=== PATIENT | male | born 1970 | race American Indian/Alaskan Native ===

== ENCOUNTER 2017-10-07 11:41 | Inpatient (IN) | payer OTHER ==
[2017-10-07] MEDS ORDERED: ASPIRIN PO ONE (12:20)
[2017-10-07 12:42] LABS: Basophils # (Auto) 0.1 K/mm3 (0.0-0.1); Basophils % (Auto) 0.8 % (0.0-1.8); Eosinophils # (Auto) 0.2 K/mm3 (0.0-0.4); Eosinophils % (Auto) 2.5 % (0.0-4.3); Hematocrit 34.2 % (35.5-45.6); Hemoglobin 11.8 gm/dl (11.8-15.2); Lymphocytes % (Auto) 11.3 % (13.4-35.0); Mean Corpuscular HGB Conc 35 % (32-34); Mean Corpuscular Hemoglobin 29 pg (28-32); Mean Corpuscular Volume 84 fl (84-94); Monocytes # (Auto) 0.8 K/mm3 (0.0-0.8); Monocytes % (Auto) 8.9 % (0.0-7.3); Platelet Count 121 K/mm3 (140-440); Red Blood Count 4.08 M/mm3 (3.65-5.03); Red Cell Distribution Width 14.4 % (13.2-15.2)
[2017-10-07 13:01] LABS: Calcium 8.3 mg/dL (8.4-10.2)
--- NOTE | 2017-10-07 13:01 | XRay Report ---
ROUTINE CHEST, TWO VIEWS: HISTORY: Cough. The trachea, heart, mediastinal contour, lung hou and bony thorax are unremarkable. IMPRESSION: Unremarkable chest x-ray.
[2017-10-07 16:29] LABS: Chol/HDL Ratio 3.4 %
--- NOTE | 2017-10-07 16:46 | Emergency Department Report ---
- General Chief Complaint: Upper Respiratory Infection Stated Complaint: SOB/COUGHING/GAGGING Time Seen by Provider: 10/07/17 16:30 Source: patient Mode of arrival: Ambulatory Limitations: No Limitations - History of Present Illness Initial Comments: 47 yo male with a past medical history hypertension presents to the hospital complaining of nonproductive cough 2 months and dyspnea on exertion for the last 3-4 days. He presents with significantly elevated blood pressure and states he's been noncompliant with blood pressure medication for at least 6 months. He denies fever, wheezing, headache, blurred vision, chest pain, edema , or decreased urine output. He does not smoke cigarettes. Patient does not have a PMD. - Related Data Home Medications Medication Instructions Recorded Confirmed Last Taken No Known Home Medications [No 10/07/17 10/07/17 Unknown Reported Home Medications] Allergies Allergy/AdvReac Type Severity Reaction Status Date / Time No Known Allergies Allergy Unverified 10/07/17 12:20 ED Review of Systems ROS: Stated complaint: SOB/COUGHING/GAGGING Other details as noted in HPI Comment: All other systems reviewed and negative ED Past Medical Hx - Past Medical History Hx Hypertension: Yes - Surgical History Past Surgical History?: No - Social History Smoking Status: Unknown if ever smoked Substance Use Type: Alcohol - Medications Home Medications: Home Medications Medication Instructions Recorded Confirmed Last Taken Type No Known Home Medications [No 10/07/17 10/07/17 Unknown History Reported Home Medications] ED Physical Exam - General Limitations: No Limitations - Other Other exam information: General: No limitations, patient is alert in no acute distress Head exam: Atraumatic, normocephalic Eyes exam: Normal appearance ENT: Moist mucous membrane, normal oropharynx Neck exam: Normal inspection, full range of motion, no meningismus nontender Respiratory exam: Clear to auscultation bilateral, no wheezes, rales, crackles Cardiovascular: Normal rate and rhythm, S4 heart sound Abdomen: Soft, nondistended, and nontender, with normal bowel sounds, no rebound, or guarding Extremity: Full range of motion normal inspection no deformity, no edema Back: Normal Inspection, full range of motion, no tenderness Neurologic: Alert, oriented x3, cranial nerves intact, no motor or sensory deficit Psychiatric: normal affect, normal mood Skin: Warm, dry, intact ED Course Vital Signs 10/07/17 10/07/17 10/07/17 12:15 16:20 16:30 Temperature 98.7 F Pulse Rate 106 H 98 H 93 H Respiratory 18 15 14 Rate Blood Pressure 234/171 242/172 Blood Pressure [Left] O2 Sat by Pulse 97 96 Oximetry 10/07/17 10/07/17 10/07/17 16:37 16:39 16:45 Temperature 99.1 F Pulse Rate 92 H 88 Respiratory 15 15 17 Rate Blood Pressure 242/172 Blood Pressure 242/172 [Left] O2 Sat by Pulse 97 97 95 Oximetry 10/07/17 10/07/17 10/07/17 17:00 17:15 17:30 Temperature Pulse Rate 92 H 98 H 102 H Respiratory 11 L 14 14 Rate Blood Pressure 228/161 241/162 236/163 Blood Pressure [Left] O2 Sat by Pulse 96 95 Oximetry 10/07/17 10/07/17 10/07/17 17:45 18:00 18:15 Temperature Pulse Rate 106 H 93 H 103 H Respiratory 15 13 13 Rate Blood Pressure 203/130 185/110 194/124 Blood Pressure [Left] O2 Sat by Pulse 94 93 95 Oximetry 10/07/17 10/07/17 10/07/17 18:30 18:45 19:00 Temperature Pulse Rate 110 H 93 H 97 H Respiratory 19 14 Rate Blood Pressure 194/124 173/98 179/109 Blood Pressure [Left] O2 Sat by Pulse 91 92 Oximetry 10/07/17 10/07/17 19:15 19:30 Temperature Pulse Rate 93 H 93 H Respiratory 17 25 H Rate Blood Pressure 175/102 170/101 Blood Pressure [Left] O2 Sat by Pulse 92 92 Oximetry - Consultations Consultation #1: 10/07/17 17:14 case d/w Dr luann Torres (cards). In Ed to eval pt 10/07/17 17:[address] Longoria nephrology. Will consult. Added UA, urine protein creatinine ratio as requested 10/07/17 19:[address] Ramon. repeat ekg reviewed due to mild changes compared to previous. still No stemi ED Medical Decision Making - Lab Data Result diagrams: 10/07/17 12:23 10/07/17 12:23 Lab Results 10/07/17 10/07/17 10/07/17 Range/Units 12:23 12:23 15:08 WBC 8.6 (4.5-11.0) K/mm3 RBC 4.08 (3.65-5.03) M/mm3 Hgb 11.8 (11.8-15.2) gm/dl Hct 34.2 L (35.5-45.6) % MCV 84 (84-94) fl MCH 29 (28-32) pg MCHC 35 H (32-34) % RDW 14.4 (13.2-15.2) % Plt Count 121 L (140-440) K/mm3 Lymph % (Auto) 11.3 L (13.4-35.0) % [place] % (Auto) 8.9 H (0.0-7.3) % Eos % (Auto) 2.5 (0.0-4.3) % Baso % (Auto) 0.8 (0.0-1.8) % Lymph # 1.0 L (1.2-5.4) K/mm3 [place] # 0.8 (0.0-0.8) K/mm3 Eos # 0.2 (0.0-0.4) K/mm3 Baso # 0.1 (0.0-0.1) K/mm3 Seg Neutrophils % 76.5 H (40.0-70.0) % Seg Neutrophils # 6.6 (1.8-7.7) K/mm3 Sodium 136 L (137-145) mmol/L Potassium 3.0 L (3.6-5.0) mmol/L Chloride 94.6 L (98-107) mmol/L Carbon Dioxide 23 (22-30) mmol/L Anion Gap 21 mmol/L BUN 54 H (9-20) mg/dL Creatinine 6.5 H (0.8-1.5) mg/dL Estimated GFR 9 ml/min BUN/Creatinine Ratio 8 % Glucose 122 H (75-100) mg/dL Calcium 8.3 L (8.4-10.2) mg/dL Troponin T 0.096 H 0.105 H* (0.00-0.029) ng/mL Triglycerides 151 H (2-149) mg/dL Cholesterol 238 H (50-199) mg/dL LDL Cholesterol Direct 146 H (50-130) mg/dL HDL Cholesterol 70 H (40-59) mg/dL Cholesterol/HDL Ratio 3.40 % - EKG Data -: EKG Interpreted by Me EKG shows normal: sinus rhythm, axis (qrs 67), QRS complexes (qrsd 100), ST-T waves (no stemi, lvh) Rate: normal (95) - EKG Data When compared to previous EKG there are: previous EKG unavailable - Radiology Data Radiology results: report reviewed read by radiologist Chest x-ray: No acute finding - Medical Decision Making Chest x-ray unremarkable without signs of infection. Patient presenting with uncontrolled hypertension with signs of newly diagnosed renal failure and mildly elevated troponin. Cardene drip initiated. Aspirin provided. Chest x- ray unremarkable. Nephrology and cardiology consultation. Patient will be admitted to the ICU due to drips. Critical care consult ordered - Differential Diagnosis pneumonia, bronchitis, CHF, hypertensive emergency Critical Care Time: No Critical care attestation.: If time is entered above; I have spent that time in minutes in the direct care of this critically ill patient, excluding procedure time. ED Disposition Clinical Impression: Cough, GARCIA (dyspnea on exertion), Hypertensive emergency, Acute renal failure, Elevated troponin, Thrombocytopenia, Hypokalemia Disposition: DC-09 OP ADMIT IP TO THIS HOSP Is pt being admited?: Yes Condition: Stable Time of Disposition: 17:01 (Margaret/hosp)
[2017-10-07] MEDS ORDERED: ASPIRIN ONE (17:17)
[2017-10-07] MEDS: CARDENE 50 MG in NACL 0.9% 250ML 230 ML IV SCH ×2 (17:30→23:46)
[2017-10-07 17:54] LABS: INR 0.95 (0.87-1.13)
[2017-10-07 17:56] LABS: Partial Thromboplastin Time 36.5 Sec. (24.2-36.6)
[2017-10-07 18:04] LABS: Creatine Kinase MB 3.4 ng/mL (0.0-4.0)
[2017-10-07 20:52] LABS: Bacteria,Urine 1+ /HPF (Negative); Bilirubin,Urine NEG (Negative); Blood,Urine NEG (Negative); Color,Urine Straw (Yellow); Mucus,Urine FEW /HPF; Urobilinogen,Urine < 2.0 mg/dL (<2.0); WBC,Urine < 1.0 /HPF (0.0-6.0)
[2017-10-07 20:53] LABS: Creatinine,Urine 70.8 mg/dL (0.1-20.0)
[2017-10-07 21:35] LABS: Amphetamine Screen,Urine PRESUMPTIVE NEGATIVE; Benzodiazepines Screen,Urine PRESUMPTIVE NEGATIVE; Cannabinoid Screen,Urine PRESUMPTIVE NEGATIVE; Cocaine Screen,Urine PRESUMPTIVE NEGATIVE; Creatinine,Urine 72.8 mg/dL (0.1-20.0); Methadone Screen,Urine PRESUMPTIVE NEGATIVE
[2017-10-07 21:54] LABS: Opiate Screen,Urine PRESUMPTIVE NEGATIVE; Protein/Creatinine Ratio,Urine 2.12
--- NOTE | 2017-10-07 23:27 | History and Physical Report ---
History of Present Illness Date of examination: 10/07/17 Date of admission: 10/07/17 17:22 Chief complaint: CC Dyspnea on exertion History of present illness: History of Present Illness: 47 yo male with a past medical history hypertension presents to the hospital complaining of nonproductive cough 2 months and dyspnea on exertion for the last 3-4 days. He presents with significantly elevated blood pressure and states he's been noncompliant with blood pressure medication for at least 6 months. He denies fever, wheezing, headache, blurred vision, chest pain, edema , or decreased urine output. He does not smoke cigarettes. Patient does not have a PMD. Past Medical History Hx Hypertension: Yes Surgical History Past Surgical History?: No Social History Smoking Status: Unknown if ever smoked Substance Use Type: Alcohol Family History Htn - Medications Home Medications: Home Medications Medication Instructions Recorded Confirmed Last Taken Type No Known Home Medications [No 10/07/17 10/07/17 Unknown History Reported Home Medications] Medications and Allergies Allergies Allergy/AdvReac Type Severity Reaction Status Date / Time No Known Allergies Allergy Unverified 10/07/17 12:20 Home Medications Medication Instructions Recorded Confirmed Last Taken Type No Known Home Medications [No 10/07/17 10/07/17 Unknown History Reported Home Medications] Active Meds: Active Medications Nicardipine HCl 50 mg/ Sodium (Chloride) 250 mls @ 25 mls/hr IV TITR JOSHUA; Protocol Last Titration: 10/07/17 18:52 Dose: 2.5 mg/hr, 12.5 mls/hr Influenza Virus Vaccine Quadrival (Fluarix Quad [id number](36 Mos+) 0.5 ml IM .ONCE ONE Stop: 10/08/17 12:01 Review of Systems All systems: negative Constitutional: fatigue, weakness, malaise, chronic headaches, no weight loss, no weight gain, no fever, no chills, no sweats, no night sweats, no anorexia Ears, nose, mouth and throat: no dysphagia, no hoarseness, no sore throat, no swelling in mouth, no swelling in throat Cardiovascular: shortness of breath, dyspnea on exertion, no chest pain, no orthopnea, no palpitations, no rapid/irregular heart beat, no edema, no syncope , no lightheadedness Respiratory: cough, shortness of breath, dyspnea on exertion, no congestion, no wheezing Gastrointestinal: nausea, no abdominal pain, no vomiting, no diarrhea, no constipation, no change in bowel habits, no hematemesis, no coffee ground emesis Genitourinary Male: no dysuria, no hematuria, no flank pain, no discharge, no urinary frequency, no urinary hesitancy Rectal: no pain Musculoskeletal: no neck stiffness, no neck pain, no shooting arm pain, no arm numbness/tingling Integumentary: no rash, no pruritis, no redness Neurological: no seizures, no syncope Psychiatric: no anxiety, no memory loss, no change in sleep habits, no sleep disturbances, no insomnia Endocrine: no cold intolerance, no heat intolerance, no polyphagia, no excessive thirst, no polydipsia, no polyuria Hematologic/Lymphatic: no easy bruising, no easy bleeding Allergic/Immunologic: no urticaria, no allergic rhinitis, no wheezing Exam - Constitutional Vitals: Temp Pulse Resp BP Pulse Ox 99.1 F 90 25 H 169/113 96 10/07/17 16:37 10/07/17 21:30 10/07/17 21:30 10/07/17 21:30 10/07/17 21:30 General appearance: Present: no acute distress, mild distress, well-nourished - EENT Eyes: Present: PERRL ENT: hearing intact, clear oral mucosa - Neck Neck: Present: supple, normal ROM - Respiratory Respiratory effort: normal Respiratory: bilateral: CTA - Cardiovascular Heart rate: 80 Rhythm: regular Heart Sounds: Present: S1 & S2. Absent: rub, click - Extremities Extremities: no ischemia, pulses intact, pulses symmetrical, No edema Peripheral Pulses: within normal limits - Abdominal General gastrointestinal: Present: soft, non-tender, non-distended, normal bowel sounds Male genitourinary: Present: normal - Rectal Rectal Exam: deferred - Integumentary Integumentary: Present: clear, warm, dry - Musculoskeletal Musculoskeletal: gait normal, strength equal bilaterally - Psychiatric Psychiatric: appropriate mood/affect, intact judgment & insight - Neurologic Neurologic: CNII-XII intact, moves all extremities - Allied Health Allied health notes reviewed: nursing, case management Results - Labs CBC & Chem 7: 10/08/17 04:15 10/08/17 04:15 Labs: Laboratory Last Values WBC 8.6 K/mm3 (4.5-11.0) 10/07/17 12:23 RBC 4.08 M/mm3 (3.65-5.03) 10/07/17 12:23 Hgb 11.8 gm/dl (11.8-15.2) 10/07/17 12: Hct 34.2 % (35.5-45.6) L 10/07/17 12:23 MCV 84 fl (84-94) 10/07/17 12: MCH 29 pg (28-32) 10/07/17 12: MCHC 35 % (32-34) H 10/07/17 12:23 RDW 14.4 % (13.2-15.2) 10/07/17 12:23 Plt Count 121 K/mm3 (140-440) L 10/07/17 12:23 Lymph % (Auto) 11.3 % (13.4-35.0) L 10/07/17 12: [place] % (Auto) 8.9 % (0.0-7.3) H 10/07/17 12: Eos % (Auto) 2.5 % (0.0-4.3) 10/07/17 12:23 Baso % (Auto) 0.8 % (0.0-1.8) 10/07/17 12: Lymph # 1.0 K/mm3 (1.2-5.4) L 10/07/17 12: [place] # 0.8 K/mm3 (0.0-0.8) 10/07/17 12:23 Eos # 0.2 K/mm3 (0.0-0.4) 10/07/17 12:23 Baso # 0.1 K/mm3 (0.0-0.1) 10/07/17 12:23 Seg Neutrophils % 76.5 % (40.0-70.0) H 10/07/17 12: Seg Neutrophils # 6.6 K/mm3 (1.8-7.7) 10/07/17 12:23 PT 13.2 Sec. (12.2-14.9) 10/07/17 17:35 INR 0.95 (0.87-1.13) 10/07/17 17:35 APTT 36.5 Sec. (24.2-36.6) 10/07/17 17:35 Sodium 136 mmol/L (137-145) L 10/07/17 12:23 Potassium 3.0 mmol/L (3.6-5.0) L 10/07/17 12:23 Chloride 94.6 mmol/L (98-107) L 10/07/17 12:23 Carbon Dioxide 23 mmol/L (22-30) 10/07/17 12:23 Anion Gap 21 mmol/L 10/07/17 12:23 BUN 54 mg/dL (9-20) H 10/07/17 12:23 Creatinine 6.5 mg/dL (0.8-1.5) H 10/07/17 12:23 Estimated GFR 9 ml/min 10/07/17 12:23 BUN/Creatinine Ratio 8 % 10/07/17 12:23 Glucose 122 mg/dL (75-100) H 10/07/17 12:23 Calcium 8.3 mg/dL (8.4-10.2) L 10/07/17 12:23 Total Creatine Kinase 307 units/L (55-170) H 10/07/17 17:35 CK-MB (CK-2) 3.4 ng/mL (0.0-4.0) 10/07/17 17:35 CK-MB (CK-2) Rel Index 1.1 (0-4) 10/07/17 17:35 Troponin T 0.105 ng/mL (0.00-0.029) H* 10/07/17 15:08 Triglycerides 151 mg/dL (2-149) H 10/07/17 15:08 Cholesterol 238 mg/dL (50-199) H 10/07/17 15:08 LDL Cholesterol Direct 146 mg/dL (50-130) H 10/07/17 15:08 HDL Cholesterol 70 mg/dL (40-59) H 10/07/17 15:08 Cholesterol/HDL Ratio 3.40 % 10/07/17 15:08 Urine Color Straw (Yellow) 10/07/17 Unknown Urine Turbidity Clear (Clear) 10/07/17 Unknown Urine pH 7.0 (5.0-7.0) 10/07/17 Unknown Ur Specific [place] 1.010 (1.003-1.030) 10/07/17 Unknown Urine Protein 100 mg/dl mg/dL (Negative) 10/07/17 Unknown Urine Glucose (UA) 50 mg/dL (Negative) 10/07/17 Unknown Urine Ketones Neg mg/dL (Negative) 10/07/17 Unknown Urine Blood Neg (Negative) 10/07/17 Unknown Urine Nitrite Neg (Negative) 10/07/17 Unknown Urine Bilirubin Neg (Negative) 10/07/17 Unknown Urine Urobilinogen < 2.0 mg/dL (<2.0) 10/07/17 Unknown Ur Leukocyte Esterase Neg (Negative) 10/07/17 Unknown Urine WBC (Auto) < 1.0 /HPF (0.0-6.0) 10/07/17 Unknown Urine RBC (Auto) 1.0 /HPF (0.0-6.0) 10/07/17 Unknown Urine Bacteria (Auto) 1+ /HPF (Negative) 10/07/17 Unknown Urine Mucus Few /HPF 10/07/17 Unknown Urine Creatinine 72.8 mg/dL (0.1-20.0) H 10/07/17 Unknown Protein/Creatinin Ratio 2.12 10/07/17 Unknown Urine Sodium 55 mmol/L 10/07/17 Unknown Urine Total Protein 152 mg/dL (5-11.8) H 10/07/17 Unknown Urine Opiates Screen Presumptive negative 10/07/17 Unknown Urine Methadone Screen Presumptive negative 10/07/17 Unknown Ur Barbiturates Screen Presumptive negative 10/07/17 Unknown Ur Phencyclidine Scrn Presumptive negative 10/07/17 Unknown Ur Amphetamines Screen Presumptive negative 10/07/17 Unknown U Benzodiazepines Scrn Presumptive negative 10/07/17 Unknown Urine Cocaine Screen Presumptive negative 10/07/17 Unknown U Marijuana (THC) Screen Presumptive negative 10/07/17 Unknown Drugs of Abuse Note Disclamer 10/07/17 Unknown Short CBC 10/07/17 10/08/17 Range/Units 12:23 04:15 WBC 8.6 6.6 (4.5-11.0) K/mm3 Hgb 11.8 11.2 L (11.8-15.2) gm/dl Hct 34.2 L 32.1 L (35.5-45.6) % Plt Count 121 L 114 L (140-440) K/mm3 BMP 10/07/17 10/08/17 12:23 04:15 Sodium 136 L 139 Potassium 3.0 L 3.1 L Chloride 94.6 L 98.2 Carbon Dioxide 23 25 BUN 54 H 54 H Creatinine 6.5 H 6.7 H Glucose 122 H 104 H Calcium 8.3 L 7.9 L Cardiac Enzymes 10/07/17 10/07/17 10/07/17 Range/Units 12:23 15:08 17:35 Total Creatine Kinase 307 H (55-170) units/L CK-MB (CK-2) 3.4 (0.0-4.0) ng/mL Troponin T 0.096 H 0.105 H* (0.00-0.029) ng/mL Liver Function 10/08/17 Range/Units 04:15 Total Bilirubin 0.50 (0.1-1.2) mg/dL AST 17 (5-40) units/L ALT 18 (7-56) units/L Alkaline Phosphatase 47 (35-129) units/L Albumin 3.3 L (3.9-5) g/dL Urine 10/07/17 Range/Units Unknown Urine Color Straw (Yellow) Urine pH 7.0 (5.0-7.0) Ur Specific [place] 1.010 (1.003-1.030) Urine Protein 100 mg/dl (Negative) mg/dL Urine Glucose (UA) 50 (Negative) mg/dL - Imaging and Cardiology EKG: report reviewed Chest x-ray: report reviewed Assessment and Plan Advance Directives: Yes (Full code) VTE prophylaxis?: Chemical Plan of care discussed with patient/family: Yes - Patient Problems (1) Hypertensive emergency Current Visit: Yes Status: Acute Plan to address problem: On cardene drip.Added Losartan Amlodipine and Carvedilol (2) Acute renal failure Current Visit: Yes Status: Acute Plan to address problem: Acute on Chronic kidney failure Will need vascath and HD Check renal U/s (3) Elevated troponin Current Visit: Yes Status: Acute Plan to address problem: Non specific Lexiscan on 10/09 (4) Hypokalemia Current Visit: Yes Status: Acute Plan to address problem: Supplemented (5) DVT prophylaxis Current Visit: Yes Status: Acute Plan to address problem: On Heparin
[2017-10-07] MEDS ORDERED: APRESOLINE IV PRN (23:28)
[2017-10-07] MEDS ORDERED: AMBIEN PO PRN (23:30)
[2017-10-07] MEDS ORDERED: ZOFRAN IV PRN (23:30)
[2017-10-07] MEDS ORDERED: TYLENOL PO PRN (23:30)
[2017-10-07] MEDS ORDERED: SODIUM CHLORIDE FLUSH SYRINGE 10 ML IV PRN (23:30)
[2017-10-07] MEDS ORDERED: MORPHINE IV PRN (23:30)
[2017-10-07] MEDS ORDERED: PERCOCET 5/325 PO PRN (23:30)
[2017-10-08] MEDS: COREG PO SCH ×4 (00:16→23:23)
[2017-10-08 04:46] LABS: Basophils # (Auto) 0.1 K/mm3 (0.0-0.1); Basophils % (Auto) 1.1 % (0.0-1.8); Eosinophils # (Auto) 0.3 K/mm3 (0.0-0.4); Hematocrit 32.1 % (35.5-45.6); Hemoglobin 11.2 gm/dl (11.8-15.2); Lymphocytes # (Auto) 0.7 K/mm3 (1.2-5.4); Mean Corpuscular HGB Conc 35 % (32-34); Mean Corpuscular Hemoglobin 29 pg (28-32); Mean Corpuscular Volume 83 fl (84-94); Monocytes # (Auto) 0.6 K/mm3 (0.0-0.8); Monocytes % (Auto) 8.5 % (0.0-7.3); Platelet Count 114 K/mm3 (140-440); Red Blood Count 3.86 M/mm3 (3.65-5.03); Red Cell Distribution Width 14.4 % (13.2-15.2)
[2017-10-08 05:06] LABS: Albumin 3.3 g/dL (3.9-5); Calcium 7.9 mg/dL (8.4-10.2)
--- NOTE | 2017-10-08 06:44 | Ultrasound Report ---
FINAL REPORT EXAM: US RENAL BILAT HISTORY: DAYA TECHNIQUE: Routine sonographic evaluation was obtained of the kidneys and bladder. FINDINGS: Imaging the right kidney shows increased cortical echotexture compatible with underlying renal medical disease. The right kidney measures 9.1 cm x 3.9 cm x 3.8 cm. The cortical thickness is 1 cm. There is a 5 mm stone in the lower pole of the right kidney. The left kidney measures 9.2 cm x 4.1 cm x 4.8 cm. The cortical texture is increased compatible with underlying renal medical disease. There is no evidence of shadowing stones or hydronephrosis. The cortical thickness is 1.2 cm. Imaging of bladder shows no evidence of abnormal wall thickening or intraluminal filling defects. Additional imaging of the right upper quadrant reveals an intraluminal filling defect in the gallbladder measuring up to 1.9 cm in diameter. With this represents a sludge ball or stone is uncertain. IMPRESSION: Increased cortical echotexture both kidneys compatible underlying renal medical disease. No evidence of hydronephrosis. Nonobstructing 5 mm stone lower pole right kidney. Intraluminal filling defect the gallbladder compatible with sludge ball versus stone.
[2017-10-08] MEDS: NORVASC PO SCH (09:06)
[2017-10-08] MEDS: COZAAR PO SCH (09:07)
[2017-10-08] MEDS: SODIUM CHLORIDE FLUSH SYRINGE 10 ML IV SCH ×2 (09:08→23:23)
[2017-10-08 10:01] LABS: Creatine Kinase MB 2.4 ng/mL (0.0-4.0)
[2017-10-08] MEDS ORDERED: Fluarix Quad 2017-2018(36 MOS+ IM ONE (12:00)
--- NOTE | 2017-10-08 13:01 | Event Note ---
Date: 10/08/17 Detailed cardiology consultation dictated. Will optimize anti-hypertensive regimen and obtain echo. Consider stress testing once BPs are optimized. Lc HURLEY NP / DR. CHARLTON
--- NOTE | 2017-10-08 13:18 | Consultation ---
History of Present Illness - Reason for Consult Consult date: 10/08/17 acute renal failure, chronic renal failure, hypokalemia Requesting physician: JORGE LUIS OLIVAREZ - History of Present Illness This is a 47 yo AAM with a past medical history hypertension diagnosed more than 10 years ago, however pt was not following up with PCP or taking any BP meds for the last year, who initially presented to the hospital complaining of SOB, dyspnea on exertion along with nonproductive cough worsening over the last month. In ER patient was found to be in hypertensive emergency with BP as high as 230/170mmhg. pt was started on cardene gtt and was transferred to the ICU. Labs showed elevated BUN/Cr at 54/6.7mg/dl along with hypokalemia for which renal consult is requested. Pt is not aware of any underlying kidney disease. He denies fever, wheezing, headache, blurred vision, chest pain, edema, or decreased urine output, dysuria, denies taking NSAIDs, no recent IV contrast exposure noted. Past History Past Medical History: hypertension, renal failure Past Surgical History: No surgical history Social history: smoking. denies: alcohol abuse, prescription drug abuse, IV drug use Family history: hypertension Medications and Allergies Allergies Allergy/AdvReac Type Severity Reaction Status Date / Time No Known Allergies Allergy Unverified 10/07/17 12:20 Home Medications Medication Instructions Recorded Confirmed Last Taken Type No Known Home Medications [No 10/07/17 10/07/17 Unknown History Reported Home Medications] Active Meds: Active Medications Acetaminophen (Tylenol) 650 mg PO Q4H PRN PRN Reason: Pain MILD(1-3)/Fever >100.5/[place]LL Amlodipine Besylate (Norvasc) 10 mg PO QDAY [facility] Last Admin: 10/08/17 09:06 Dose: 10 mg Carvedilol (Coreg) 25 mg PO BID [facility] Last Admin: 10/08/17 12:38 Dose: 25 mg Hydralazine HCl (Apresoline) 10 mg IV Q3H PRN PRN Reason: Hypertension Nicardipine HCl 50 mg/ Sodium (Chloride) 250 mls @ 25 mls/hr IV TITR [facility]; Protocol Last Titration: 10/08/17 03:53 Dose: 0 mg/hr, 0 mls/hr Losartan Potassium (Cozaar) 100 mg PO QDAY [facility] Last Admin: 10/08/17 09:07 Dose: 100 mg Morphine Sulfate (Morphine) 2 mg IV Q4H PRN PRN Reason: Pain, Moderate (4-6) Ondansetron HCl (Zofran) 4 mg IV Q8H PRN PRN Reason: Nausea And Vomiting Oxycodone/Acetaminophen (Percocet 5/325) 1 tab PO Q6H PRN PRN Reason: Pain, Moderate (4-6) Sodium Chloride (Sodium Chloride Flush Syringe 10 Ml) 10 ml IV BID JOSHUA Last Admin: 10/08/17 09:08 Dose: 10 ml Sodium Chloride (Sodium Chloride Flush Syringe 10 Ml) 10 ml IV PRN PRN PRN Reason: LINE FLUSH Zolpidem Tartrate (Ambien) 5 mg PO QHS PRN PRN Reason: Insomnia Review of Systems All systems: negative Constitutional: weakness Cardiovascular: shortness of breath, dyspnea on exertion, paroxysmal nocturnal dyspnea Exam - Vital Signs Vital signs: Vital Signs Temp Pulse Resp BP Pulse Ox 98.7 F 106 H 18 234/171 97 10/07/17 12:15 10/07/17 12:15 10/07/17 12:15 10/07/17 12:15 10/07/17 12:15 - General Appearance General appearance: well-developed, well-nourished, appears stated age EENT: ATNC, PERRL, mucous membranes moist Neck: Present: neck supple Respiratory: Clear to Ascultation Heart: regular, S1S2 Gastrointestinal: Present: normoactive bowel sounds Integumentary: no rash, other (no edema ) Neurologic: no focal deficit, alert and oriented x3, strength 5/5, CN 3-12 intact Psychiatric: mood/affect appropriate, cooperative Results - Lab Results 10/08/17 04:15 10/08/17 04:15 Most recent lab results Calcium 7.9 mg/dL (8.4-10.2) L 10/08/17 04:15 Urine Creatinine 72.8 mg/dL (0.1-20.0) H 10/07/17 Unknown Urine Sodium 55 mmol/L 10/07/17 Unknown Urine Total Protein 152 mg/dL (5-11.8) H 10/07/17 Unknown Assessment and Plan - Patient Problems (1) Hypertensive emergency Current Visit: Yes Status: Acute Plan to address problem: cont cardene gtt; suspect increased mineralocorticoid activity contributing to uncontrolled hypertension, will add spironolacton to current BP regimen. 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 no acute uremic complications at present, no acute indication for HD. 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 avoid nephrotoxins, NSAIDs, IV contrast. if renal function does not improve despite improved BP control, pt needs preparation for HD in the future as outpatient. 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 (4) Hypokalemia Current Visit: Yes Status: Acute Plan to address problem: suspect increased mineralocorticoid activity, added spironolactone to current bp regimen (5) Thrombocytopenia Current Visit: Yes Status: Acute Plan to address problem: recommend Hematology consult
--- NOTE | 2017-10-08 15:25 | Progress Note ---
Assessment and Plan - Patient Problems (1) Hypertensive emergency Current Visit: Yes Status: Acute Plan to address problem: On cardene drip.Added Losartan Amlodipine and Carvedilol (2) Acute renal failure Current Visit: Yes Status: Acute Plan to address problem: Acute on Chronic kidney failure Will need vascath and HD Check renal U/s (3) Elevated troponin Current Visit: Yes Status: Acute Plan to address problem: Non specific Lexiscan on 10/09 (4) Hypokalemia Current Visit: Yes Status: Acute Plan to address problem: Supplemented (5) DVT prophylaxis Current Visit: Yes Status: Acute Plan to address problem: On Heparin Subjective Date of service: 10/08/17 Objective - Constitutional Vitals: Vital Signs - 12hr 10/08/17 10/08/17 10/08/17 03:31 03:41 03:51 Temperature Pulse Rate 80 75 78 Pulse Rate [ From Monitor] Respiratory 21 19 20 Rate Blood Pressure 137/84 137/84 137/84 O2 Sat by Pulse 92 95 92 Oximetry 10/08/17 10/08/17 10/08/17 04:00 04:11 04:21 Temperature 98.8 F Pulse Rate 79 83 85 Pulse Rate [ From Monitor] Respiratory 18 16 18 Rate Blood Pressure 141/86 141/86 141/86 O2 Sat by Pulse 93 96 95 Oximetry 10/08/17 10/08/17 10/08/17 04:31 04:41 04:51 Temperature Pulse Rate 75 76 78 Pulse Rate [ From Monitor] Respiratory 19 20 17 Rate Blood Pressure 141/86 141/86 141/86 O2 Sat by Pulse 95 97 96 Oximetry 10/08/17 10/08/17 10/08/17 05:01 05:11 05:21 Temperature Pulse Rate 75 72 81 Pulse Rate [ From Monitor] Respiratory 13 17 10 L Rate Blood Pressure 141/86 141/86 151/99 O2 Sat by Pulse 95 94 96 Oximetry 10/08/17 10/08/17 10/08/17 05:31 05:41 05:51 Temperature Pulse Rate 76 72 77 Pulse Rate [ From Monitor] Respiratory 26 H 14 24 Rate Blood Pressure 151/99 151/99 151/99 O2 Sat by Pulse 98 92 94 Oximetry 10/08/17 10/08/17 10/08/17 06:00 06:11 06:21 Temperature Pulse Rate 78 78 77 Pulse Rate [ From Monitor] Respiratory 24 25 H 20 Rate Blood Pressure 159/102 159/102 159/102 O2 Sat by Pulse 95 92 93 Oximetry 10/08/17 10/08/17 10/08/17 06:31 06:41 06:51 Temperature Pulse Rate 75 81 90 Pulse Rate [ From Monitor] Respiratory 15 24 17 Rate Blood Pressure 159/102 159/102 159/102 O2 Sat by Pulse 95 96 98 Oximetry 10/08/17 10/08/17 10/08/17 07:00 07:01 07:11 Temperature Pulse Rate 77 74 Pulse Rate [ 76 From Monitor] Respiratory 18 18 20 Rate Blood Pressure 159/102 159/102 O2 Sat by Pulse 96 95 95 Oximetry 10/08/17 10/08/17 10/08/17 07:21 07:31 07:41 Temperature Pulse Rate 73 76 78 Pulse Rate [ From Monitor] Respiratory 15 15 23 Rate Blood Pressure 161/111 165/109 165/109 O2 Sat by Pulse 95 94 96 Oximetry 10/08/17 10/08/17 10/08/17 07:51 08:00 08:11 Temperature 97.6 F Pulse Rate 73 72 69 Pulse Rate [ From Monitor] Respiratory 17 20 17 Rate Blood Pressure 165/109 163/119 163/119 O2 Sat by Pulse 93 97 96 Oximetry 10/08/17 10/08/17 10/08/17 08:21 08:31 08:41 Temperature Pulse Rate 81 75 84 Pulse Rate [ From Monitor] Respiratory 12 20 20 Rate Blood Pressure 163/119 163/119 163/119 O2 Sat by Pulse 96 96 95 Oximetry 10/08/17 10/08/17 10/08/17 08:51 09:00 09:06 Temperature Pulse Rate 72 72 71 Pulse Rate [ 76 From Monitor] Respiratory 22 20 Rate Blood Pressure 163/119 158/101 157/102 O2 Sat by Pulse 94 94 Oximetry 10/08/17 10/08/17 10/08/17 09:07 09:09 09:11 Temperature Pulse Rate 74 72 73 Pulse Rate [ From Monitor] Respiratory 23 Rate Blood Pressure 157/102 O2 Sat by Pulse 94 Oximetry 10/08/17 10/08/17 10/08/17 09:21 09:31 09:41 Temperature Pulse Rate 67 75 72 Pulse Rate [ From Monitor] Respiratory 13 19 15 Rate Blood Pressure 157/102 157/102 157/102 O2 Sat by Pulse 96 97 99 Oximetry 10/08/17 10/08/17 10/08/17 09:51 10:00 10:11 Temperature Pulse Rate 77 73 73 Pulse Rate [ From Monitor] Respiratory 18 15 24 Rate Blood Pressure 159/106 162/106 162/106 O2 Sat by Pulse 96 95 95 Oximetry 10/08/17 10/08/17 10/08/17 10:21 10:31 10:41 Temperature Pulse Rate 79 73 71 Pulse Rate [ From Monitor] Respiratory 25 H 26 H 11 L Rate Blood Pressure 162/106 162/106 162/106 O2 Sat by Pulse 97 94 97 Oximetry 10/08/17 10/08/17 10/08/17 10:51 11:00 11:11 Temperature Pulse Rate 78 74 70 Pulse Rate [ From Monitor] Respiratory 22 21 17 Rate Blood Pressure 162/106 150/94 150/94 O2 Sat by Pulse 87 89 96 Oximetry 10/08/17 10/08/17 10/08/17 11:21 11:31 11:41 Temperature Pulse Rate 64 65 63 Pulse Rate [ From Monitor] Respiratory 18 20 14 Rate Blood Pressure 150/94 150/94 150/94 O2 Sat by Pulse 96 95 95 Oximetry 10/08/17 10/08/17 10/08/17 11:51 11:55 12:00 Temperature 97.8 F Pulse Rate 77 75 Pulse Rate [ From Monitor] Respiratory 18 15 Rate Blood Pressure 150/94 143/97 O2 Sat by Pulse 96 96 Oximetry 10/08/17 10/08/17 10/08/17 12:11 12:21 12:31 Temperature Pulse Rate 67 69 71 Pulse Rate [ From Monitor] Respiratory 16 20 14 Rate Blood Pressure 143/97 143/97 143/97 O2 Sat by Pulse 95 94 94 Oximetry 10/08/17 10/08/17 10/08/17 12:38 12:41 12:51 Temperature Pulse Rate 71 69 71 Pulse Rate [ From Monitor] Respiratory 18 24 Rate Blood Pressure 143/97 143/97 143/97 O2 Sat by Pulse 93 93 Oximetry 10/08/17 10/08/17 10/08/17 13:00 13:11 13:21 Temperature Pulse Rate 72 70 70 Pulse Rate [ 76 From Monitor] Respiratory 22 25 H 20 Rate Blood Pressure 150/97 150/97 150/97 O2 Sat by Pulse 94 96 96 Oximetry 10/08/17 10/08/17 10/08/17 13:31 13:41 13:51 Temperature Pulse Rate 70 69 69 Pulse Rate [ From Monitor] Respiratory 19 15 18 Rate Blood Pressure 150/97 150/97 150/97 O2 Sat by Pulse 95 96 94 Oximetry 10/08/17 14:00 Temperature Pulse Rate 69 Pulse Rate [ From Monitor] Respiratory 17 Rate Blood Pressure 127/82 O2 Sat by Pulse 92 Oximetry General appearance: Present: no acute distress, well-nourished - EENT Eyes: PERRL, EOM intact ENT: hearing intact, clear oral mucosa Ears: bilateral: normal - Neck Neck: supple, normal ROM - Respiratory Respiratory effort: normal Respiratory: bilateral: CTA - Breasts Breasts: normal - Cardiovascular Rhythm: regular Heart Sounds: Present: S1 & S2. Absent: gallop, rub Extremities: pulses intact, No edema, normal color, Full ROM - Gastrointestinal General gastrointestinal: Present: soft, non-tender, non-distended, normal bowel sounds - Genitourinary Male genitourinary: normal - Integumentary Integumentary: clear, warm, dry - Musculoskeletal Musculoskeletal: 1, strength equal bilaterally - Neurologic Neurologic: moves all extremities - Psychiatric Psychiatric: memory intact, appropriate mood/affect, intact judgment & insight - Labs CBC & Chem 7: 10/08/17 04:15 10/08/17 04:15 Labs: Abnormal lab results 10/07/17 10/07/17 10/07/17 Range/Units 15:08 17:35 Unknown Hgb (11.8-15.2) gm/dl Hct (35.5-45.6) % MCV (84-94) fl MCHC (32-34) % Plt Count (140-440) K/mm3 Lymph % (Auto) (13.4-35.0) % [place] % (Auto) (0.0-7.3) % Lymph # (1.2-5.4) K/mm3 Seg Neutrophils % (40.0-70.0) % Potassium (3.6-5.0) mmol/L BUN (9-20) mg/dL Creatinine (0.8-1.5) mg/dL Glucose (75-100) mg/dL Calcium (8.4-10.2) mg/dL Total Creatine Kinase 307 H (55-170) units/L Troponin T 0.105 H* (0.00-0.029) ng/mL Total Protein (6.3-8.2) g/dL Albumin (3.9-5) g/dL Triglycerides 151 H (2-149) mg/dL Cholesterol 238 H (50-199) mg/dL LDL Cholesterol Direct 146 H (50-130) mg/dL HDL Cholesterol 70 H (40-59) mg/dL Urine Creatinine 72.8 H (0.1-20.0) mg/dL Urine Total Protein 152 H (5-11.8) mg/dL 10/07/17 10/08/17 10/08/17 Range/Units Unknown 04:15 04:15 Hgb 11.2 L (11.8-15.2) gm/dl Hct 32.1 L (35.5-45.6) % MCV 83 L (84-94) fl MCHC 35 H (32-34) % Plt Count 114 L (140-440) K/mm3 Lymph % (Auto) 10.0 L (13.4-35.0) % [place] % (Auto) 8.5 H (0.0-7.3) % Lymph # 0.7 L (1.2-5.4) K/mm3 Seg Neutrophils % 76.4 H (40.0-70.0) % Potassium 3.1 L (3.6-5.0) mmol/L BUN 54 H (9-20) mg/dL Creatinine 6.7 H (0.8-1.5) mg/dL Glucose 104 H (75-100) mg/dL Calcium 7.9 L (8.4-10.2) mg/dL Total Creatine Kinase (55-170) units/L Troponin T (0.00-0.029) ng/mL Total Protein 5.6 L (6.3-8.2) g/dL Albumin 3.3 L (3.9-5) g/dL Triglycerides (2-149) mg/dL Cholesterol (50-199) mg/dL LDL Cholesterol Direct (50-130) mg/dL HDL Cholesterol (40-59) mg/dL Urine Creatinine 70.8 H (0.1-20.0) mg/dL Urine Total Protein (5-11.8) mg/dL 10/08/17 Range/Units 04:15 Hgb (11.8-15.2) gm/dl Hct (35.5-45.6) % MCV (84-94) fl MCHC (32-34) % Plt Count (140-440) K/mm3 Lymph % (Auto) (13.4-35.0) % [place] % (Auto) (0.0-7.3) % Lymph # (1.2-5.4) K/mm3 Seg Neutrophils % (40.0-70.0) % Potassium (3.6-5.0) mmol/L BUN (9-20) mg/dL Creatinine (0.8-1.5) mg/dL Glucose (75-100) mg/dL Calcium (8.4-10.2) mg/dL Total Creatine Kinase 199 H (55-170) units/L Troponin T 0.103 H* (0.00-0.029) ng/mL Total Protein (6.3-8.2) g/dL Albumin (3.9-5) g/dL Triglycerides (2-149) mg/dL Cholesterol (50-199) mg/dL LDL Cholesterol Direct (50-130) mg/dL HDL Cholesterol (40-59) mg/dL Urine Creatinine (0.1-20.0) mg/dL Urine Total Protein (5-11.8) mg/dL
[2017-10-08] MEDS: ALDACTONE PO SCH ×2 (15:42→23:23)
--- NOTE | 2017-10-08 19:56 | Consultation ---
CONSULT REQUESTED BY: Hospitalist. REASON FOR CONSULTATION: Hypertension and troponin elevation. HISTORY OF PRESENT ILLNESS: This 47-year-old patient known to have hypertension for more than 10 years, did not take blood pressure medication for the last 6 months as he did not have any symptoms of hypertension. The patient has been having nonproductive cough, especially worse at night. Also has dyspnea on exertion walking one flight of stairs for the last one week. The patient is working multimedia programmer. He does not smoke, does not take any alcohol. The patient is not . He has a 16-year-old daughter. PAST MEDICAL HISTORY: Apart from hypertension, the patient denies any history of known hyperlipidemia, diabetes mellitus, TIA, stroke or any symptoms of angina pectoris or myocardial infarction or heart failure. PAST SURGICAL HISTORY: None. SOCIAL HISTORY: The patient does not smoke. The patient still takes occasional alcoholic beverages once in month or so. FAMILY HISTORY: Positive for hypertension. MEDICATIONS AT HOME: None in the last 6 months. The patient does not have any primary medical doctor. ALLERGIES: None known. REVIEW OF SYSTEMS: RESPIRATORY: Has a cough. No history of fever, sore throat. No history of hemoptysis. CARDIOVASCULAR: No history of chest pain, but he has dyspnea on exertion. Cough is worse at night. No history of palpitations. GASTROINTESTINAL: No history of ulcer disease, reflux disease or any bleeding diathesis. ENDOCRINE: No history of thyroid disease or diabetes mellitus. PHYSICAL EXAMINATION: VITAL SIGNS: His body weight is 85.6 kg. Temperature 99.1 degrees Fahrenheit, pulse 90 per minute, respirations 25 per minute, blood pressure 174/120. The patient is no acute distress. NECK: No JVD elevation, no bruits noted. No thyroid enlargement. HEART: PMI is fifth intercostal space heaving in nature. Heart sounds heard well. There is S4 and also S3 gallop at the apex. No murmurs audible. LUNGS: Clear. ABDOMEN: Soft, nontender. No bruits noted over the flanks. Femorals are felt well, NO bruits noted. EXTREMITIES: No edema. Good pulses. No calf tenderness. CENTRAL NERVOUS SYSTEM: Grossly intact. IMAGING DATA: EKG reveals sinus rhythm, left ventricle hypertrophy with nonspecific ST-T changes. Chest x-ray is clear. LABORATORY DATA: WBC count is normal at 8600, hemoglobin 11.8 grams percent, hematocrit 34.2, platelet count is 121,000. Sodium is 136, potassium 3.0, BUN is 54, creatinine 6.5. Estimated GFR is 9. Random glucose 122 mg percent. Calcium is 8.3. Troponin is 0.105, second is 0.103. Cholesterol is 238, LDL of 146, HDL of 70, triglycerides 151. IMPRESSION: 1. Hypertensive emergency. 2. End-stage renal disease, probably due to uncontrolled hypertension. 3. Troponin elevation, most likely due to hypertension. DISCUSSION: We will control the blood pressure with IV Cardene drip and introduce p.o. medications. The patient will have Nephrology consultation. We will also do echocardiogram. Once the pressure is well controlled, we may do myocardial perfusion imaging studies. We will follow the patient with you. JOB# [id number] ERNIE/MANNIE
--- NOTE | 2017-10-08 20:57 | Consultation ---
History of Present Illness Consult date: 10/08/17 Requesting physician: MAYNOR SPENCER Reason for consult: other (Malignant HTN, ) History of present illness: This is a 47 yo AAM with a past medical history hypertension diagnosed more than 10 years ago, however pt was not following up with PCP or taking any BP meds for the last year, who initially presented to the hospital complaining of SOB, dyspnea on exertion along with nonproductive cough worsening over the last month. In ER patient was found to be in hypertensive emergency with BP as high as 230/170mmhg. pt was started on cardene infusion and acute renal failure. Vascath was placed emergently and HD initiated. REVIEW OF SYSTEMS Constitutional: fatigue, weakness, malaise, chronic headaches, no weight loss, no weight gain, no fever, no chills, no sweats, no night sweats, no anorexia Ears, nose, mouth and throat: no dysphagia, no hoarseness, no sore throat, no swelling in mouth, no swelling in throat Cardiovascular: shortness of breath, dyspnea on exertion, no chest pain, no orthopnea, no palpitations, no rapid/irregular heart beat, no edema, no syncope , no lightheadedness Respiratory: cough, shortness of breath, dyspnea on exertion, no congestion, no wheezing Gastrointestinal: nausea, no abdominal pain, no vomiting, no diarrhea, no constipation, no change in bowel habits, no hematemesis, no coffee ground emesis Genitourinary Male: no dysuria, no hematuria, no flank pain, no discharge, no urinary frequency, no urinary hesitancy Rectal: no pain Musculoskeletal: no neck stiffness, no neck pain, no shooting arm pain, no arm numbness/tingling Integumentary: no rash, no pruritis, no redness Neurological: no seizures, no syncope Psychiatric: no anxiety, no memory loss, no change in sleep habits, no sleep disturbances, no insomnia Endocrine: no cold intolerance, no heat intolerance, no polyphagia, no excessive thirst, no polydipsia, no polyuria Hematologic/Lymphatic: no easy bruising, no easy bleeding Allergic/Immunologic: no urticaria, no allergic rhinitis, no wheezing Past History Past Medical History: hypertension, renal failure Past Surgical History: No surgical history Social history: smoking. denies: alcohol abuse, prescription drug abuse, IV drug use Family history: hypertension Medications and Allergies Allergies Allergy/AdvReac Type Severity Reaction Status Date / Time No Known Allergies Allergy Unverified 10/07/17 12:20 Home Medications Medication Instructions Recorded Confirmed Last Taken Type No Known Home Medications [No 10/07/17 10/07/17 Unknown History Reported Home Medications] Active Meds: Active Medications Acetaminophen (Tylenol) 650 mg PO Q4H PRN PRN Reason: Pain MILD(1-3)/Fever >100.5/[place] Amlodipine Besylate (Norvasc) 10 mg PO QDAY [facility] Last Admin: 10/08/17 09:06 Dose: 10 mg Carvedilol (Coreg) 25 mg PO BID [facility] Last Admin: 10/08/17 12:38 Dose: 25 mg Hydralazine HCl (Apresoline) 10 mg IV Q3H PRN PRN Reason: Hypertension Nicardipine HCl 50 mg/ Sodium (Chloride) 250 mls @ 25 mls/hr IV TITR [facility]; Protocol Last Titration: 10/08/17 03:53 Dose: 0 mg/hr, 0 mls/hr Losartan Potassium (Cozaar) 100 mg PO QDAY [facility] Last Admin: 10/08/17 09:07 Dose: 100 mg Morphine Sulfate (Morphine) 2 mg IV Q4H PRN PRN Reason: Pain, Moderate (4-6) Ondansetron HCl (Zofran) 4 mg IV Q8H PRN PRN Reason: Nausea And Vomiting Oxycodone/Acetaminophen (Percocet 5/325) 1 tab PO Q6H PRN PRN Reason: Pain, Moderate (4-6) Sodium Chloride (Sodium Chloride Flush Syringe 10 Ml) 10 ml IV BID [facility] Last Admin: 10/08/17 09:08 Dose: 10 ml Sodium Chloride (Sodium Chloride Flush Syringe 10 Ml) 10 ml IV PRN PRN PRN Reason: LINE FLUSH Spironolactone (Aldactone) 25 mg PO BID [facility] Last Admin: 10/08/17 15:42 Dose: 25 mg Zolpidem Tartrate (Ambien) 5 mg PO QHS PRN PRN Reason: Insomnia Physical Examination Vital signs: Vital Signs Temp Pulse Resp BP Pulse Ox 98.7 F 106 H 18 234/171 97 10/07/17 12:15 10/07/17 12:15 10/07/17 12:15 10/07/17 12:15 10/07/17 12:15 General appearance: Present: no acute distress, mild distress, well-nourished - EENT Eyes: Present: PERRL ENT: hearing intact, clear oral mucosa - Neck Neck: Present: supple, normal ROM - Respiratory Respiratory effort: normal Respiratory: bilateral: CTA - Cardiovascular Heart rate: 80 Rhythm: regular Heart Sounds: Present: S1 & S2. Absent: rub, click - Extremities Extremities: no ischemia, pulses intact, pulses symmetrical, No edema Peripheral Pulses: within normal limits - Abdominal General gastrointestinal: Present: soft, non-tender, non-distended, normal bowel sounds Male genitourinary: Present: normal - Rectal Rectal Exam: deferred - Integumentary Integumentary: Present: clear, warm, dry - Musculoskeletal Musculoskeletal: gait normal, strength equal bilaterally - Psychiatric Psychiatric: appropriate mood/affect, intact judgment & insight - Neurologic Neurologic: CNII-XII intact, moves all extremities Results - Laboratory Findings CBC and BMP: 10/08/17 04:15 10/09/17 12:05 PT/INR, D-dimer PT 13.2 Sec. (12.2-14.9) 10/07/17 17:35 INR 0.95 (0.87-1.13) 10/07/17 17:35 Abnormal lab findings: Abnormal Labs 10/07/17 10/07/17 10/07/17 12:23 12:23 15:08 Hgb Hct 34.2 L MCV MCHC 35 H Plt Count 121 L Lymph % (Auto) 11.3 L Ray % (Auto) 8.9 H Lymph # 1.0 L Seg Neutrophils % 76.5 H Sodium 136 L Potassium 3.0 L Chloride 94.6 L BUN 54 H Creatinine 6.5 H Glucose 122 H Calcium 8.3 L Total Creatine Kinase Troponin T 0.096 H 0.105 H* Total Protein Albumin Triglycerides 151 H Cholesterol 238 H LDL Cholesterol Direct 146 H HDL Cholesterol 70 H Urine Creatinine Urine Total Protein 10/07/17 10/07/17 10/07/17 17:35 Unknown Unknown Hgb Hct MCV MCHC Plt Count Lymph % (Auto) Ray % (Auto) Lymph # Seg Neutrophils % Sodium Potassium Chloride BUN Creatinine Glucose Calcium Total Creatine Kinase 307 H Troponin T Total Protein Albumin Triglycerides Cholesterol LDL Cholesterol Direct HDL Cholesterol Urine Creatinine 72.8 H 70.8 H Urine Total Protein 152 H 10/08/17 10/08/17 10/08/17 04:15 04:15 04:15 Hgb 11.2 L Hct 32.1 L MCV 83 L MCHC 35 H Plt Count 114 L Lymph % (Auto) 10.0 L Ray % (Auto) 8.5 H Lymph # 0.7 L Seg Neutrophils % 76.4 H Sodium Potassium 3.1 L Chloride BUN 54 H Creatinine 6.7 H Glucose 104 H Calcium 7.9 L Total Creatine Kinase 199 H Troponin T 0.103 H* Total Protein 5.6 L Albumin 3.3 L Triglycerides Cholesterol LDL Cholesterol Direct HDL Cholesterol Urine Creatinine Urine Total Protein Assessment and Plan Hypertensive emergency Acute renal failure on CKD CMP - EF 35-40% Diastolic dysfunction Elevated troponin - suspect secondary to HTN and ARF Thrombocytopenia Hypokalemia H/o noncompliance with medication regimen -wean off nicardipine infusion and initiate oral anti-hypertensives -Cardiprotective measures -Renal consult -VTE prophylaxis -Replete potassium cautiously -Cardiology consult -Need for medical compliance emphasized and discussed in great detail
[2017-10-09] MEDS: COZAAR PO SCH (09:45)
[2017-10-09] MEDS: SODIUM CHLORIDE FLUSH SYRINGE 10 ML IV SCH ×2 (09:45→21:46)
[2017-10-09] MEDS: COREG PO SCH ×2 (09:45→21:45)
[2017-10-09] MEDS: ALDACTONE PO SCH ×2 (09:46→21:44)
[2017-10-09] MEDS: NORVASC PO SCH (09:49)
--- NOTE | 2017-10-09 10:12 | Progress Note ---
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 no acute uremic complications at present, no acute indication for HD. 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 avoid nephrotoxins, NSAIDs, IV contrast. if renal function does not improve despite improved BP control, pt needs preparation for HD in the future as outpatient. 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 (4) Hypokalemia Current Visit: Yes Status: Acute Plan to address problem: suspect increased mineralocorticoid activity, added spironolactone (5) Thrombocytopenia Current Visit: Yes Status: Acute Plan to address problem: recommend Hematology consult Subjective Date of service: 10/09/17 Principal diagnosis: CKD 5, hypertension Interval history: Pt awake, alert, in NAD, denies n/v/d, CP, SOB, palpitations, dysuria, abd pain Objective - Vital Signs Vital signs: Vital Signs - 12hr 10/09/17 10/09/17 07:50 09:45 Temperature 99 F Pulse Rate 63 99 H Respiratory 15 Rate Blood Pressure 137/99 Blood Pressure 137/99 [Left] - General Appearance General appearance: well-developed, well-nourished, appears stated age EENT: ATNC, PERRL, mucous membranes moist Neck: no JVD Respiratory: Present: Clear to Ascultation Cardiology: regular, S1S2 Gastrointestinal: normoactive bowel sounds Integumentary: no rash, other (no edema ) Neurologic: no focal deficit, alert and oriented x3, strength 5/5, CN 3-12 intact Psychiatric: mood/affect appropriate, cooperative - Lab 10/08/17 04:15 10/08/17 04:15 Most recent lab results Calcium 7.9 mg/dL (8.4-10.2) L 10/08/17 04:15 Urine Creatinine 72.8 mg/dL (0.1-20.0) H 10/07/17 Unknown Urine Sodium 55 mmol/L 10/07/17 Unknown Urine Total Protein 152 mg/dL (5-11.8) H 10/07/17 Unknown
--- NOTE | 2017-10-09 10:51 | Progress Note ---
Assessment and Plan Assessment: Hypertensive emergency - improving Acute renal failure on CKD CMP - EF 35-40% Diastolic dysfunction Elevated troponin - suspect secondary to HTN and ARF Thrombocytopenia Hypokalemia H/o noncompliance with medication regimen Plan: Echo reviewed - EF 35-40%, restrictive diastolic filling, mild LVH, trace MR, trace TR, RVSP 35mmHg. BPs improving. Continue amlodipine, coreg, aldactone. Pt initiated on losartan per primary. Would recommend holding ACEI/ARB at this time in setting of ARF on CKD. Will defer to nephrology. Electrolyte replacement per nephrology. Plan for lexiscan MPI stress test in AM to rule out ischemic CMP. NPO after MN. Assessment and plan reviewed with pt at bedside. The patient has been seen in conjunction with Dr. Torres who agrees with the assessment and plan of care. Subjective Date of service: 10/09/17 Principal diagnosis: CKD 5, hypertension Interval history: pt resting comfortably in bed, no current complaints. Objective Last Vital Signs Temp 99 F 10/09/17 07:50 Pulse 99 H 10/09/17 09:45 Resp 15 10/09/17 07:50 BP 137/99 10/09/17 09:45 Pulse Ox 95 10/08/17 19:53 - Physical Examination General: No Apparent Distress HEENT: Positive: PERRL, Normocephaly, Mucus Membranes Moist Neck: Positive: neck supple Cardiac: Positive: Reg Rate and Rhythm, S1/S2 Lungs: Positive: clear to auscultation Neuro: Positive: Grossly Intact, Cranial Nerve 2-12 Intact Abdomen: Positive: Soft. Negative: Tender Skin: Positive: Clear. Negative: Rash Musculoskeletal: No Fluid Collection, No Pain, Normal Range of Motion Extremities: Absent: edema - Imaging and Cardiology EKG: report reviewed Echo: report reviewed (EF 35-40%, restrictive diastolic filling, mild LVH, trace MR, trace TR, RVSP 35mmHg) - Telemetry EKG Rhythm: Sinus Rhythm
[2017-10-09 13:26] LABS: Calcium 7.7 mg/dL (8.4-10.2)
--- NOTE | 2017-10-09 13:46 | Progress Note ---
Assessment and Plan Hypertensive emergency Acute renal failure on CKD CMP - EF 35-40% Diastolic dysfunction Elevated troponin - suspect secondary to HTN and ARF Thrombocytopenia Hypokalemia H/o noncompliance with medication regimen -wean off nicardipine infusion and initiate oral anti-hypertensives -Cardiprotective measures -Renal consult -VTE prophylaxis -Replete potassium cautiously -Cardiology consult -Need for medical compliance emphasized and discussed in great detail Subjective Date of service: 10/09/17 Principal diagnosis: CKD 5, hypertension Objective Vital Signs - 12hr 10/09/17 10/09/17 07:50 09:45 Temperature 99 F Pulse Rate 63 99 H Respiratory 15 Rate Blood Pressure 137/99 Blood Pressure 137/99 [Left] CBC and BMP: 10/08/17 04:15 10/09/17 12:05 ABG, PT/INR, D-dimer: PT/INR, D-dimer PT 13.2 Sec. (12.2-14.9) 10/07/17 17:35 INR 0.95 (0.87-1.13) 10/07/17 17:35 Abnormal lab findings: Abnormal Labs 10/07/17 10/07/17 10/07/17 12:23 12:23 15:08 Hgb Hct 34.2 L MCV MCHC 35 H Plt Count 121 L Lymph % (Auto) 11.[address] [place] % (Auto) 8.9 H Lymph # 1.0 L Seg Neutrophils % 76.5 H Sodium 136 L Potassium 3.0 L Chloride 94.6 L BUN 54 H Creatinine 6.5 H Glucose 122 H Calcium 8.3 L Total Creatine Kinase Troponin T 0.096 H 0.105 H* Total Protein Albumin Triglycerides 151 H Cholesterol 238 H LDL Cholesterol Direct 146 H HDL Cholesterol 70 H Urine Creatinine Urine Total Protein 10/07/17 10/07/17 10/07/17 17:35 Unknown Unknown Hgb Hct MCV MCHC Plt Count Lymph % (Auto) [place] % (Auto) Lymph # Seg Neutrophils % Sodium Potassium Chloride BUN Creatinine Glucose Calcium Total Creatine Kinase 307 H Troponin T Total Protein Albumin Triglycerides Cholesterol LDL Cholesterol Direct HDL Cholesterol Urine Creatinine 72.8 H 70.8 H Urine Total Protein 152 H 10/08/17 10/08/17 10/08/17 04:15 04:15 04:15 Hgb 11.2 L Hct 32.1 L MCV 83 L MCHC 35 H Plt Count 114 L Lymph % (Auto) 10.[address] [place] % (Auto) 8.5 H Lymph # 0.7 L Seg Neutrophils % 76.4 H Sodium Potassium 3.1 L Chloride BUN 54 H Creatinine 6.7 H Glucose 104 H Calcium 7.9 L Total Creatine Kinase 199 H Troponin T 0.103 H* Total Protein 5.6 L Albumin 3.3 L Triglycerides Cholesterol LDL Cholesterol Direct HDL Cholesterol Urine Creatinine Urine Total Protein 10/09/17 12:05 Hgb Hct MCV MCHC Plt Count Lymph % (Auto) [place] % (Auto) Lymph # Seg Neutrophils % Sodium 134 L Potassium Chloride 94.5 L BUN 60 H Creatinine 6.4 H Glucose Calcium 7.7 L Total Creatine Kinase Troponin T Total Protein Albumin Triglycerides Cholesterol LDL Cholesterol Direct HDL Cholesterol Urine Creatinine Urine Total Protein
[2017-10-10] MEDS ORDERED: LEXISCAN IV ONE ×2 (08:37→08:42)
[2017-10-10] MEDS: ALDACTONE PO SCH (10:00)
[2017-10-10] MEDS: NORVASC PO SCH (10:00)
[2017-10-10] MEDS: COZAAR PO SCH (10:00)
[2017-10-10] MEDS: COREG PO SCH (10:00)
--- NOTE | 2017-10-10 11:57 | Progress Note ---
Assessment and Plan Assessment: Hypertensive emergency - improving Acute renal failure on CKD CMP - EF 35-40% Diastolic dysfunction Elevated troponin - suspect secondary to HTN and ARF Thrombocytopenia Hypokalemia H/o noncompliance with medication regimen Plan: s/p lexiscan MPI stress test this AM which was negative for ischemia, EF 36%. Currently stable cardiac status. Pt may discharge home from cardiology standpoint. Recommend follow up in our office with Dr. Torres within 2 weeks of hospital discharge ([phone]). Assessment and plan reviewed with pt at bedside. The patient has been seen in conjunction with Dr. Torres who agrees with the assessment and plan of care. Subjective Date of service: 10/10/17 Principal diagnosis: CKD 5, hypertension Interval history: pt for stress test today. no current complaints. Objective Last Vital Signs Temp 98.2 F 10/10/17 07:42 Pulse 64 10/10/17 07:42 Resp 18 10/10/17 07:42 BP 139/92 10/10/17 07:42 Pulse Ox 96 10/10/17 07:42 - Physical Examination General: No Apparent Distress HEENT: Positive: PERRL, Normocephaly, Mucus Membranes Moist Neck: Positive: neck supple Cardiac: Positive: Reg Rate and Rhythm, S1/S2 Lungs: Positive: clear to auscultation Neuro: Positive: Grossly Intact, Cranial Nerve 2-12 Intact Abdomen: Positive: Soft. Negative: Tender Skin: Positive: Clear. Negative: Rash Musculoskeletal: No Fluid Collection, No Pain, Normal Range of Motion Extremities: Absent: edema - Labs and Meds Comprehensive Metabolic Panel 10/09/17 Range/Units 12:05 Sodium 134 L (137-145) mmol/L Potassium 3.6 (3.6-5.0) mmol/L Chloride 94.5 L (98-107) mmol/L Carbon Dioxide 24 (22-30) mmol/L BUN 60 H (9-20) mg/dL Creatinine 6.4 H (0.8-1.5) mg/dL Glucose 90 (75-100) mg/dL Calcium 7.7 L (8.4-10.2) mg/dL - Imaging and Cardiology EKG: report reviewed Echo: report reviewed (EF 35-40%, restrictive diastolic filling, mild LVH, trace MR, trace TR, RVSP 35mmHg) - Telemetry EKG Rhythm: Sinus Rhythm
[2017-10-10 12:22] LABS: Calcium 8.1 mg/dL (8.4-10.2)
--- NOTE | 2017-10-10 13:39 | Treadmill Report ---
NUCLEAR PERFUSION SCAN REFERRING PHYSICIAN: Hospitalist service. PROTOCOL: The patient was brought to the stress lab in a post-absorptive state, given 10 mCi of technetium at rest. The patient underwent rest imaging. The patient underwent Lexiscan stress test per standard protocol. The patient at peak stress was given 26 mCi of technetium 99m. Shortly thereafter, the patient underwent stress imaging. Raw imaging reveals mild GI artifact. No significant motion artifact. SPECT imaging examined carefully in horizontal long axis, vertical long axis, short axis views. Technically somewhat difficult study due to GI artifact, but grossly no evidence of significant fixed or reversible perfusion defects suggestive of prior infarction or ischemia. Gated wall motion reveals moderate global left ventricular hypokinesis with a calculated ejection fraction of 36%. CONCLUSIONS: 1. Technically difficult study, but probably normal without evidence of significant degree of ischemia or prior infarction. 2. Moderate global left ventricular hypokinesis with a calculated ejection fraction of 36%. JOB# [id number] JOAQUIN/MANNIE
--- NOTE | 2017-10-10 14:12 | Progress Note ---
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 no acute uremic complications at present, no acute indication for HD. 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 avoid nephrotoxins, NSAIDs, IV contrast. if renal function does not improve despite improved BP control, pt needs preparation for HD in the future as outpatient. stable for discharge from renal stand point (3) Chronic kidney disease, stage 5 Current Visit: Yes Status: Acute Plan to address problem: likely due to hypertensive nephrosclerosis. (4) Hypokalemia Current Visit: Yes Status: Acute Plan to address problem: suspect increased mineralocorticoid activity, added spironolactone (5) Thrombocytopenia Current Visit: Yes Status: Acute Plan to address problem: recommend Hematology consult Subjective Date of service: 10/10/17 Principal diagnosis: CKD 5, hypertension Interval history: Pt awake, alert, in NAD, denies n/v/d, CP, SOB, palpitations, dysuria, abd pain Objective - Vital Signs Vital signs: Vital Signs - 12hr 10/10/17 10/10/17 10/10/17 04:00 07:42 08:50 Temperature 98.5 F 98.2 F Pulse Rate 73 64 66 Respiratory 18 Rate Blood Pressure 146/103 139/92 153/106 O2 Sat by Pulse 96 96 Oximetry 10/10/17 10/10/17 10/10/17 09:19 09:20 09:21 Temperature Pulse Rate 80 83 80 Respiratory Rate Blood Pressure 134/91 145/97 155/100 O2 Sat by Pulse Oximetry 10/10/17 10/10/17 10/10/17 09:22 09:23 09:24 Temperature Pulse Rate 80 77 82 Respiratory Rate Blood Pressure 149/96 143/98 137/93 O2 Sat by Pulse Oximetry - General Appearance General appearance: well-developed, well-nourished, appears stated age EENT: ATNC, PERRL, mucous membranes moist Neck: no JVD Respiratory: Present: Clear to Ascultation Cardiology: regular, S1S2 Gastrointestinal: normoactive bowel sounds Integumentary: no rash, other (no edema ) Neurologic: no focal deficit, alert and oriented x3, strength 5/5, CN 3-12 intact - Lab 10/08/17 04:15 10/10/17 11:02 Most recent lab results Calcium 8.1 mg/dL (8.4-10.2) L 10/10/17 11:02 Urine Creatinine 72.8 mg/dL (0.1-20.0) H 10/07/17 Unknown Urine Sodium 55 mmol/L 10/07/17 Unknown Urine Total Protein 152 mg/dL (5-11.8) H 10/07/17 Unknown
[2017-10-10 15:57] VITALS: BP 145/103
--- NOTE | 2017-10-10 17:18 | Discharge Summary ---
Providers - Providers Date of Admission: 10/07/17 17:22 Date of discharge: 10/10/17 Attending physician: MAYNOR SPENCER 10/07/17 17:13 Consult to Physician [CONS] Urgent Comment: Dr. Charlton saw the patient in person Consulting Provider: ANAND CHARLTON Physician Instructions: Reason For Exam: elevated trop, htn emergency, arf 10/07/17 17:23 Consult to Physician [CONS] Stat Comment: Dr. Mahoney notified Consulting Provider: INGRID MAHONEY Physician Instructions: Reason For Exam: htn emergency, arf, hypokalemia Consult to Physician [CONS] Urgent Comment: Dr. Gonzalez notified Consulting Provider: ROSE GONZALEZ Physician Instructions: Reason For Exam: elevated trop, htn emergency, arf Primary care physician: MICHI NORRIS Hospitalization Condition: Stable Disposition: DC-01 TO HOME OR SELFCARE Time spent for discharge: 31 minutes - Discharge Diagnoses (1) Hypertensive emergency Status: Acute (2) Acute renal failure Status: Acute (3) Elevated troponin Status: Acute (4) Hypokalemia Status: Acute (5) DVT prophylaxis Status: Acute Core Measure Documentation - Palliative Care Palliative Care/ Comfort Measures: Not Applicable - Core Measures Any of the following diagnoses?: none Exam - Constitutional Vitals: Temp Pulse Resp BP Pulse Ox 98.4 F 71 20 145/103 98 10/10/17 15:08 10/10/17 15:08 10/10/17 15:08 10/10/17 15:08 10/10/17 15:08 Plan Follow up with: MICHI NORRIS MD [Primary Care Provider] - 3-5 Days
== END 2017-10-10 17:50 | disposition home or self-care (01) | DRG 304 ==
LOC: ED 11:41 → CC1 17:22 → 3A 10-08 18:48
PROVIDERS: ADMIT Internal Medicine; ATTEND Internal Medicine
PROC: 3E0234Z Introduction of Serum, Toxoid and Vaccine into Muscle, Percutaneous Approach (ICD-10-PCS; principal; 2017-10-08)
DX: I16.1 Hypertensive emergency (principal); N18.6 End stage renal disease; N17.9 Acute kidney failure, unspecified; I42.9 Cardiomyopathy, unspecified; R06.09 Other forms of dyspnea; R74.8 Abnormal levels of other serum enzymes; D69.6 Thrombocytopenia, unspecified; I12.0 Hypertensive chronic kidney disease with stage 5 chronic kidney disease or end stage renal disease; E87.6 Hypokalemia; Z72.89 Other problems related to lifestyle; Z82.49 Family history of ischemic heart disease and other diseases of the circulatory system; Z23 Encounter for immunization
CPT/HCPCS: 36415; 71046; 76770; 78452; 80048; 80053; 80061; 80307; 81001; 82550; 82553; 82570; 83036; 84156; 84300; 84484; 85025; 85610; 85730; 90686; 93005; 93010; 93017; 93306; A9502; J2785; J7050

== ENCOUNTER 2018-02-18 19:05 | Emergency (ER) | payer SELFPAY ==
[2018-02-18] MEDS ORDERED: CATAPRES ONE (19:34)
[2018-02-18] MEDS ORDERED: CATAPRES PO ONE (19:45)
[2018-02-18 19:55] LABS: Basophils # (Auto) 0.1 K/mm3 (0.0-0.1); Basophils % (Auto) 0.8 % (0.0-1.8); Eosinophils # (Auto) 0.3 K/mm3 (0.0-0.4); Eosinophils % (Auto) 3.8 % (0.0-4.3); Hematocrit 29.6 % (35.5-45.6); Hemoglobin 10.3 gm/dl (11.8-15.2); Lymphocytes # (Auto) 1.1 K/mm3 (1.2-5.4); Lymphocytes % (Auto) 13.8 % (13.4-35.0); Mean Corpuscular HGB Conc 35 % (32-34); Mean Corpuscular Hemoglobin 29 pg (28-32); Mean Corpuscular Volume 85 fl (84-94); Monocytes # (Auto) 0.7 K/mm3 (0.0-0.8); Monocytes % (Auto) 8.6 % (0.0-7.3); Platelet Count 137 K/mm3 (140-440)
[2018-02-18 20:05] LABS: INR 0.95 (0.87-1.13)
[2018-02-18 20:06] LABS: Partial Thromboplastin Time 30.6 Sec. (24.2-36.6)
[2018-02-18 20:11] LABS: Calcium 8.4 mg/dL (8.4-10.2)
--- NOTE | 2018-02-18 21:41 | XRay Report ---
FINAL REPORT EXAM: XR CHEST ROUTINE 2V HISTORY: sob TECHNIQUE: Frontal and lateral chest x-ray. PRIORS: None. FINDINGS: Cardiac and mediastinal silhouette within normal limits. Lungs are normally expanded, without significant vascular congestion. No focal consolidation, pleural effusion or apparent pneumothorax. Bony thorax without acute abnormality. IMPRESSION: 1. No acute findings.
[2018-02-19] MEDS ORDERED: NITROSTAT SL PRN (01:06)
[2018-02-19] MEDS ORDERED: ALDACTONE PO ONE ×2 (01:29→04:58)
[2018-02-19] MEDS ORDERED: LASIX PO ONE (01:29)
[2018-02-19] MEDS ORDERED: COZAAR PO ONE ×3 (01:29→06:00)
[2018-02-19] MEDS ORDERED: COREG PO ONE ×3 (01:29→06:00)
[2018-02-19] MEDS ORDERED: NORVASC PO ONE ×3 (01:29→06:00)
--- NOTE | 2018-02-19 02:54 | Emergency Department Report ---
ED General Adult HPI - General Chief complaint: High BP Stated complaint: SOB Time Seen by Provider: 02/19/18 01:05 Source: patient Mode of arrival: Ambulatory Limitations: No Limitations - History of Present Illness Initial comments: 3 days of dyspnea and orthopnea. Patient has not had his medications for the past month because he can't afford them. He finally got insurance as well as start April 07. Denies chest pain, leg swelling, cough, headache. Severity scale (0 -10): 0 - Related Data Previous Rx's Medication Instructions Recorded Last Taken Type Carvedilol [Coreg] 25 mg PO BID #60 tablet 10/10/17 Unknown Rx amLODIPine [Norvasc] 10 mg PO QDAY #30 tablet 10/10/17 Unknown Rx Carvedilol [Coreg] 25 mg PO BID #60 tablet 02/19/18 Unknown Rx Furosemide [Lasix TAB] 40 mg PO QDAY #4 tablet 02/19/18 Unknown Rx Losartan [Cozaar] 100 mg PO QDAY #30 tablet 02/19/18 Unknown Rx Spironolactone [Aldactone] 25 mg PO BID #60 tablet 02/19/18 Unknown Rx amLODIPine [Norvasc] 10 mg PO ONCE #30 tablet 02/19/18 Unknown Rx Allergies Allergy/AdvReac Type Severity Reaction Status Date / Time No Known Allergies Allergy Unverified 10/07/17 12:20 ED Review of Systems ROS: Stated complaint: SOB Other details as noted in HPI Comment: All other systems reviewed and negative Respiratory: orthopnea, shortness of breath ED Past Medical Hx - Past Medical History Previous Medical History?: Yes Hx Hypertension: Yes Hx Congestive Heart Failure: No Hx Diabetes: No Hx GERD: No Hx Seizures: No Hx Asthma: No Hx COPD: No Hx Dementia: No - Surgical History Past Surgical History?: No - Social History Smoking Status: Never Smoker Substance Use Type: None - Medications Home Medications: Home Medications Medication Instructions Recorded Confirmed Last Taken Type Carvedilol [Coreg] 25 mg PO BID #60 tablet 10/10/17 02/18/18 Unknown Rx amLODIPine [Norvasc] 10 mg PO QDAY #30 tablet 10/10/17 02/18/18 Unknown Rx Carvedilol [Coreg] 25 mg PO BID #60 tablet 02/19/18 Unknown Rx Furosemide [Lasix TAB] 40 mg PO QDAY #4 tablet 02/19/18 Unknown Rx Losartan [Cozaar] 100 mg PO QDAY #30 tablet 02/19/18 Unknown Rx Spironolactone [Aldactone] 25 mg PO BID #60 tablet 02/19/18 Unknown Rx amLODIPine [Norvasc] 10 mg PO ONCE #30 tablet 02/19/18 Unknown Rx ED Physical Exam - General Limitations: No Limitations General appearance: alert, in no apparent distress - Head Head exam: Present: atraumatic, normocephalic - Eye Eye exam: Present: normal appearance - ENT ENT exam: Present: mucous membranes moist - Neck Neck exam: Present: normal inspection - Respiratory Respiratory exam: Present: normal lung sounds bilaterally. Absent: respiratory distress - Cardiovascular Cardiovascular Exam: Present: regular rate, normal rhythm, JVD (moderate). Absent: systolic murmur, diastolic murmur, rubs, gallop - GI/Abdominal GI/Abdominal exam: Present: soft, normal bowel sounds. Absent: distended, tenderness, guarding - Rectal Rectal exam: Present: deferred - Extremities Exam Extremities exam: Present: normal inspection, pedal edema (1+ bilateral) - Back Exam Back exam: Present: normal inspection - Neurological Exam Neurological exam: Present: alert, oriented X3 - Psychiatric Psychiatric exam: Present: normal affect, normal mood - Skin Skin exam: Present: warm, dry, intact, normal color. Absent: rash ED Course Vital Signs 02/18/18 02/18/18 02/19/18 19:19 19:50 01:26 Temperature 98.5 F Pulse Rate 103 H 102 H 89 Respiratory 20 21 Rate Blood Pressure 225/153 225/153 Blood Pressure 191/134 [Left] O2 Sat by Pulse 97 97 Oximetry 02/19/18 02/19/18 02/19/18 02:02 02:03 02:05 Temperature Pulse Rate 83 83 85 Respiratory Rate Blood Pressure 200/142 200/142 208/148 Blood Pressure [Left] O2 Sat by Pulse Oximetry 02/19/18 02/19/18 02:52 03:15 Temperature Pulse Rate 65 64 Respiratory 16 16 Rate Blood Pressure Blood Pressure 164/99 152/100 [Left] O2 Sat by Pulse 100 95 Oximetry - Reevaluation(s) Reevaluation #1: BP improved with home BP meds. Delta troponin improving. Pt has been given 2 days of home meds to go home with. He says that he can afford his BP meds when he gets paid this saturday. Pt has also been given a PCP/nephrology referral. 02/19/18 05:31 Reevaluation #2: I offered the patient stay in the hospital for observation of his kidney function. He said that he preferred to go home with outpatient management. 02/19/18 05:47 ED Medical Decision Making - Lab Data Result diagrams: 02/18/18 19:46 02/18/18 19:46 - EKG Data -: EKG Interpreted by Me EKG shows normal: sinus rhythm, axis, intervals, QRS complexes, ST-T waves Rate: normal - EKG Data Interpretation: no acute changes - Radiology Data Radiology results: report reviewed - Medical Decision Making 48-year-old male with past medical history of COPD, hypertension that presents to the ER with shortness of breath. Vital signs significant for hypertension with a blood pressure of 225/153. Mild tachycardia appreciated on exam. Physical exam shows evidence of mild fluid overload given patient's JVD and bilateral pedal edema. Lab work shows an elevated creatinine at 6.6, which is at baseline for the patient. He has a markedly elevated BNP at 33,000 and mild troponin elevation at 0.09. Likely this is due to the patient's CKD. He denies any chest pain, shortness of breath. Patient has as echo, which shows an EF of 35%. Patient most likely is exhibiting signs of mild CHF exacerbation. He has been given his home blood pressure medication and Lasix/ nitroglycerin. - Differential Diagnosis ACS, CHF, pneumonia, PE, sepsis, dissection, esophageal rupture Critical care attestation.: If time is entered above; I have spent that time in minutes in the direct care of this critically ill patient, excluding procedure time. ED Disposition Clinical Impression: Chronic kidney disease, stage 5, Elevated troponin, Hypertension Disposition: - TO HOME OR SELFCARE Is pt being admited?: No Does the pt Need Aspirin: No Condition: Stable Instructions: Hypertension (ED) Prescriptions: amLODIPine [Norvasc] 10 mg PO ONCE #30 tablet Carvedilol [Coreg] 25 mg PO BID #60 tablet Furosemide [Lasix TAB] 40 mg PO QDAY #4 tablet Losartan [Cozaar] 100 mg PO QDAY #30 tablet Spironolactone [Aldactone] 25 mg PO BID #60 tablet Referrals: PRIMARY CARE, [Primary Care Provider] - 3-5 Days BLANE VILLARREAL MD [Staff Physician] - 3-5 Days [facility] [Outside] - 3-5 Days
[2018-02-19 06:15] LABS: Chol/HDL Ratio 3.69 %
[2018-02-19 06:19] VITALS: BP 146/99
== END 2018-02-19 06:05 | disposition home or self-care (01) ==
LOC: ED 19:05
DX: I12.0 Hypertensive chronic kidney disease with stage 5 chronic kidney disease or end stage renal disease (principal); R79.89 Other specified abnormal findings of blood chemistry; N18.5 Chronic kidney disease, stage 5
CPT/HCPCS: 36415; 71046; 80048; 80061; 83880; 84484; 85025; 85610; 85730; 93005; 93010; 99284